=== PATIENT | female | born 1930 | race Asian ===

== ENCOUNTER 2020-08-01 09:44 | Emergency (ER) | payer OTHER, BC ==
[~2020-08-01] VITALS: Ht 154.9 cm; Wt 40.8 kg
[2020-08-01 09:56] VITALS: Ht 154.9 cm; Wt 40.8 kg
[2020-08-01 11:16] LABS: BASOPHIL % 0.5 % (0-2); PLATELET COUNT 181 x10^3mcL (130-400); RED CELL DISTRIBUTION WIDTH 14.5 % (11.5-14.5)
[2020-08-01 11:29] LABS: CARBON DIOXIDE 33.9 mmol/L (21-32); CHLORIDE SERUM 102 mmol/L (98-107); GLUCOSE SERUM 89 mg/dL (74-106); POTASSIUM SERUM 3.9 mmol/L (3.5-5.1); SODIUM SERUM 136 mmol/L (136-145)
[2020-08-01 11:41] LABS: ALBUMIN 3.5 g/dL (3.4-5.0); ALKALINE PHOSPHATASE 62 U/L (46-116); ALT/SGPT 22 U/L (14-59); AST/SGOT 19 U/L (15-37); BILIRUBIN TOTAL 1.2 mg/dL (0.20-1.00); LIPASE 133 IU/L (73-393); MAGNESIUM 2.1 mg/dL (1.8-2.4); T4(THYROXINE) 6.3 ug/dL (4.7-13.3); TOTAL PROTEIN, SERUM 7.1 g/dL (6.4-8.2)
[2020-08-01 11:42] LABS: CHOLESTEROL 130 mg/dL (<200); HDL CHOLESTEROL 67 mg/dL (40-60)
[2020-08-01 11:50] LABS: UA SPECIFIC GRAVITY 1.015 (1.005-1.035); microscopic required? YES; urine erythrocyte TRACE (NEGATIVE)
[2020-08-01 13:18] VITALS: BP 138/52
[2020-08-01 13:30] LABS: AMPHETAMINE QUAL UR NONE DETECTED (See below)
== END 2020-08-01 13:18 | disposition short-term general hospital (02) ==
LOC: ED 09:44
PROVIDERS: Emergency Medicine
DX: S01.01XA Laceration without foreign body of scalp, initial encounter (principal); I10 Essential (primary) hypertension; Z98.890 Other specified postprocedural states; Z90.711 Acquired absence of uterus with remaining cervical stump; Z20.828 Contact with and (suspected) exposure to other viral communicable diseases; W01.0XXA Fall on same level from slipping, tripping and stumbling without subsequent striking against object, initial encounter; Y93.89 Activity, other specified; Y92.89 Other specified places as the place of occurrence of the external cause; Y99.8 Other external cause status
CPT/HCPCS: 82962; 83880; G0480; J2001; J7030; Q0092

== ENCOUNTER 2020-08-12 10:55 | Emergency (ER) | payer OTHER, BC ==
[~2020-08-12] VITALS: Ht 144.8 cm; Wt 39.0 kg
[2020-08-12 11:11] VITALS: BP 148/70; Ht 144.8 cm; Wt 39.0 kg
== END 2020-08-12 11:44 | disposition home or self-care (01) ==
LOC: ED 10:55
DX: S01.01XD Laceration without foreign body of scalp, subsequent encounter (principal); I10 Essential (primary) hypertension; M81.0 Age-related osteoporosis without current pathological fracture; Z90.710 Acquired absence of both cervix and uterus; X58.XXXD Exposure to other specified factors, subsequent encounter

== ENCOUNTER 2020-12-01 10:32 | Emergency (ER) | payer OTHER, BC ==
[~2020-12-01] VITALS: Ht 152.4 cm; Wt 38.6 kg
[2020-12-01 10:50] VITALS: Ht 152.4 cm; Wt 38.6 kg
[2020-12-01 12:44] VITALS: BP 185/99
== END 2020-12-01 12:44 | disposition home or self-care (01) ==
LOC: ED 10:32
DX: S00.03XA Contusion of scalp, initial encounter (principal); I10 Essential (primary) hypertension; M81.0 Age-related osteoporosis without current pathological fracture; Z90.710 Acquired absence of both cervix and uterus; W18.39XA Other fall on same level, initial encounter; Y93.89 Activity, other specified; Y92.89 Other specified places as the place of occurrence of the external cause; Y99.8 Other external cause status